=== PATIENT | female | born 1990 | race American Indian/Alaskan Native ===

== ENCOUNTER 2023-07-25 03:11 | Inpatient (IN) | payer BC, OTHER ==
[~2023-07-25] VITALS: Ht 170.2 cm; Wt 74.4 kg
[~2023-07-25 03:11] MED LIST: CIPROFLOXACIN500 MG PO; IBUPROFEN600 MG PO; KEFLEX500 MG PO; NORCO 5-325 TA1 EACH PO; OXYCODONE-ACET1 EAC1 PO; PROMETHAZINE HC25 M1 PO; SUBOXONE 2 MG-1 EAC2 SL; SUBOXONE 8 MG-1 EAC1 SL; VALIUM5 MG PO; ZOFRAN ODT4 MG PO
[2023-07-25 04:31] LABS: HEMATOCRIT 31.3 % (35.0-50.0); HEMOGLOBIN 10.5 g/dL (12.0-18.0); MCH 28.5 (27-36); MCHC 33.4 g/dl (30-36); MCV 85.2 fl (81-99); RBC 3.68 M/ul (4.3-5.7); RDW 13.6 (10.5-15.0)
[2023-07-25 04:57] LABS: ABO O; ANTIBODY SCREEN NEGATIVE; RH POSITIVE
[2023-07-25 07:21] LABS: AMPHETAMINES, URINE NEGATIVE (NEGATIVE); BARBITURATES, URINE NEGATIVE (NEGATIVE); BENZODIAZEPINE, URINE NEGATIVE (NEGATIVE); BUPRENORPHINE, URINE NEGATIVE (NEGATIVE); CANNABINOID, URINE POSITIVE (NEGATIVE); COCAINE, URINE NEGATIVE (NEGATIVE); ECSTASY, URINE NEGATIVE (NEGATIVE); FENTANYL, URINE NEGATIVE (NEGATIVE); METHADONE, URINE NEGATIVE (NEGATIVE); OPIATES, URINE NEGATIVE (NEGATIVE); OXYCODONE, URINE NEGATIVE (NEGATIVE); PHENCYCLIDINE, URINE NEGATIVE (NEGATIVE)
--- NOTE | 2023-07-25 07:32 | PR ---
[facility] [address] [facility] [place], [place] [address] Signed Progress Notes IP Datetime Report Generated by RICARDO: 07/25/2023 07:32 PROGRESS NOTES: [id number] Impression: Normal Progression of Labor Procedures: Sterile Vag Exam Plan: Continue Present Management VITAL SIGNS: [id number] Vital Signs: Reviewed; Within Normal Limits EXAM: [id number] Dilatation: 4.0 Effacement: 100 Station: -2 Contractions: q 1 to 5 min MEMBRANES: [id number] Comments: Comfortable after epidural. Progressing though still tight band at cervix. Will continue. FETUS A: [id number] FHR Baseline: 130 Variability: Moderate 6-25bpm Accelerations: 15X15 Decelerations: None FHR Category: Category I Presentation: Vertex FETUS B: [id number] Signing Physician: Alisa Marcano MD Copies: ~ *Electronically Signed* 07/25/23731 ALISA MARCANO MD PATIENT NAME: TERRA BREWSTER PROGRESS NOTE DATE OF : [birth year] PHYSICIAN: ALISA MARCANO MD RPT #: [id number] REPORT IS CONFIDENTIAL AND NOT TO BE RELEASED WITHOUT AUTHORIZATION
--- NOTE | 2023-07-25 09:02 | PR ---
[facility] [address] [facility] [place], [place] [address] Signed Progress Notes IP Datetime Report Generated by CPNima: 07/25/2023 09:02 PROGRESS NOTES: [id number] Impression: Normal Progression of Labor Procedures: Sterile Vag Exam Plan: Continue Present Management VITAL SIGNS: [id number] Vital Signs: Reviewed; Within Normal Limits EXAM: [id number] Dilatation: 9.0 Effacement: 100 Station: -1 Contractions: q 1 to 3 min MEMBRANES: [id number] Comments: Comfortable. Progressing well. Will continue. FETUS A: [id number] FHR Baseline: 130 Variability: Moderate 6-25bpm Accelerations: 15X15 Decelerations: Variable FHR Category: Category II Presentation: Vertex FETUS B: [id number] Signing Physician: Alisa Marcano MD Copies: ~ *Electronically Signed* 07/25/23901 ALISA MARCANO MD PATIENT NAME: TERRA BREWSTER PROGRESS NOTE DATE OF : [birth year] PHYSICIAN: ALISA MARCANO MD RPT #: [id number] REPORT IS CONFIDENTIAL AND NOT TO BE RELEASED WITHOUT AUTHORIZATION
[2023-07-26 05:41] LABS: HEMATOCRIT 23.4 % (35.0-50.0); HEMOGLOBIN 8.1 g/dL (12.0-18.0); MCH 29.2 (27-36); MCHC 34.4 g/dl (30-36); MCV 84.6 fl (81-99); RBC 2.77 M/ul (4.3-5.7); RDW 13.6 (10.5-15.0)
[2023-07-26 09:09] VITALS: BP 114/63
--- NOTE | 2023-07-26 21:08 | PR ---
[facility] [address] [facility] [place], [place] [address] Signed PP Progress Notes Datetime Report Generated by CPN: 07/26/2023 21:07 SUBJECTIVE: [id number] Pain: Within Normal Limits Nausea/Vomiting: Denies Flatus: Yes Bowel Movement: No Vital Signs: [id number] Vital Signs: Reviewed; Within Normal Limits Cardiovascular: Normal Respiratory: Normal Abdomen/Uterus: Normal Lochia: Normal Vulva/Perineum: Not Done Breasts: Not Done CVA Tenderness: Normal Extremities: Normal Incision: Not Applicable Progress: Normal Exam Comments: Fundus firm U-2 nontender IMPRESSION/PLAN/PROCEDURES: [id number] Impression: Normal Progression Plan: Continue Present Management Progress Notes: Pt seen and examined. Doing well. Ambulating w/out lightheadeness/dizziness, voiding, and tolerating full diet. Pain and lochia minimal. well. Desires d/c home. Hgb 8.1. Anticipate d/c home tomorrow; to border status if not ready for discharge Signing Physician: Bobo Boyer DO Copies: ~ *Electronically Signed* 07/26/23 6593 BOBO BOYER (VANDANA) DO PATIENT NAME: TERRA BREWSTER PROGRESS NOTE DATE OF : [birth year] PHYSICIAN: BOBO BOYER (JD) DO RPT #: [id number] REPORT IS CONFIDENTIAL AND NOT TO BE RELEASED WITHOUT AUTHORIZATION
--- NOTE | 2023-07-27 08:52 | PR ---
[facility] [address] [facility] [place], [place] [address] Signed PP Progress Notes Datetime Report Generated by CPN: 07/27/2023 08:52 SUBJECTIVE: [id number] Pain: Within Normal Limits Nausea/Vomiting: Denies Flatus: Yes Bowel Movement: No Vital Signs: [id number] Vital Signs: Reviewed; Within Normal Limits Cardiovascular: Normal Respiratory: Normal Abdomen/Uterus: Normal Lochia: Normal Vulva/Perineum: Not Done Breasts: Not Done CVA Tenderness: Normal Extremities: Normal Incision: Not Applicable Progress: Normal Exam Comments: Fundus firm U-2 nontender IMPRESSION/PLAN/PROCEDURES: [id number] Impression: Normal Progression Plan: Discharge Progress Notes: Pt seen and examined. Doing well. Ambulating, voiding, and tolerating full diet. Pain and lochia minimal. well. No fevers / chills. Desires d/c home. Signing Physician: Bobo Boyer DO Copies: ~ *Electronically Signed* 07/27/23 0852 BOBO BOYER (VANDANA) DO PATIENT NAME: NEYTERRA PROGRESS NOTE DATE OF : [birth year] PHYSICIAN: BOBO BOYER (VANDANA) DO RPT #: [id number] REPORT IS CONFIDENTIAL AND NOT TO BE RELEASED WITHOUT AUTHORIZATION
== END 2023-07-27 09:50 | disposition home or self-care (01) | DRG 805 ==
LOC: FBCO 03:11 → FBC 03:45
PROVIDERS: ADMIT Obstetrics & Gynecology; ATTEND Obstetrics & Gynecology
PROC: 10E0XZZ Delivery of Products of Conception, External Approach (ICD-10-PCS; principal; 2023-07-25)
PROC: 10D17Z9 Manual Extraction of Products of Conception, Retained, Via Natural or Artificial Opening (ICD-10-PCS; 2023-07-25)
PROC: 0KQM0ZZ Repair Perineum Muscle, Open Approach (ICD-10-PCS; 2023-07-25)
PROC: 3E0R3BZ Introduction of Anesthetic Agent into Spinal Canal, Percutaneous Approach (ICD-10-PCS; 2023-07-25)
PROC: 00HU33Z Insertion of Infusion Device into Spinal Canal, Percutaneous Approach (ICD-10-PCS; 2023-07-25)
DX: O42.013 Preterm premature rupture of membranes, onset of labor within 24 hours of rupture, third trimester (principal); O60.14X0 Preterm labor third trimester with preterm delivery third trimester, not applicable or unspecified; Z37.0 Single live birth; D62 Acute posthemorrhagic anemia; Z3A.36 36 weeks gestation of pregnancy; O90.81 Anemia of the puerperium; O70.1 Second degree perineal laceration during delivery; O69.1XX0 Labor and delivery complicated by cord around neck, with compression, not applicable or unspecified; Z87.891 Personal history of nicotine dependence
CPT/HCPCS: 01960; 36415; 80307; 85027; 86850; 86900; 86901; A9270; J2405; J2590; J2795; J3010; J7121